=== PATIENT | male | born 1940 ===

== ENCOUNTER 2025-06-06 23:50 | Emergency (ER) | payer MEDICARE, SELFPAY ==
[~2025-06-06] VITALS: Ht 172.7 cm; Wt 73.3 kg
[2025-06-07 00:19] LABS: BASO # 0.0 10^3/uL (0.0-0.2); BASO % 0.7 % (0.0-1.0); EOS # 0.3 10^3/uL (0.0-0.5); EOS % 4.4 % (0.0-3.0); LYMPH # 3.1 10^3/uL (1.5-5.0); LYMPH % 52.4 % (24.0-44.0); MONO # 0.7 10^3/uL (0.0-0.8); MONO % 12.0 % (2.0-8.0); NEUTROPHILS # 1.8 10^3/uL (1.5-8.5); NEUTROPHILS % 29.8 % (36.0-66.0); PLATELET COUNT, AUTOMATED 276 10^3/uL (150-450)
[2025-06-07] MEDS: ONDANSETRON 4MG 2ML VIAL IV ONE (00:53)
[2025-06-07] MEDS: MORPHINE 4 MG/ML 1 ML VIAL IV PRN (00:54)
[2025-06-07 01:06] LABS: CALCIUM LEVEL 8.6 MG/DL (8.3-10.6); CARBON DIOXIDE LEVEL 21.0 MMOL/L (20-31); CHLORIDE LEVEL 109.0 MMOL/L (98-107); CREATININE FOR GFR 0.78 MG/DL (0.70-1.30); GLOMERULAR FILTRATION RATE 87.9 (>35); POTASSIUM SERUM 4.1 MMOL/L (3.5-5.1); SODIUM LEVEL 144.0 MMOL/L (136-145)
[2025-06-07] MEDS ORDERED: NOREPINEPHRINE 4MG IN D5 250ML 4 MG in IV 1 EA IV SCH (01:30)
[2025-06-07] MEDS: NS (Normal Saline) 0.9% 1,000 ML IV ONE (01:35)
[2025-06-07] MEDS: MORPHINE 4 MG/ML 1 ML VIAL IV ONE (02:20)
[2025-06-07 02:25] VITALS: BP 115/59
[2025-06-07 02:33] VITALS: TEMP 97.8
[2025-06-07 02:40] VITALS: O2SAT 98
== END 2025-06-07 02:38 | disposition short-term general hospital (02) ==
LOC: M ED 23:50
DX: S12.110A Anterior displaced Type II dens fracture, initial encounter for closed fracture (principal); S12.030A Displaced posterior arch fracture of first cervical vertebra, initial encounter for closed fracture; W01.198A Fall on same level from slipping, tripping and stumbling with subsequent striking against other object, initial encounter; M48.02 Spinal stenosis, cervical region; M43.12 Spondylolisthesis, cervical region; F10.10 Alcohol abuse, uncomplicated; Y92.410 Unspecified street and highway as the place of occurrence of the external cause; Y93.89 Activity, other specified; Y99.9 Unspecified external cause status
CPT/HCPCS: 70450; 72125; 80047; 80048; 82077; 85025; 85730; 86850; 86900; 86901; 96361; 96374; 96375; 96376; 99291; J2405